=== PATIENT | male | born 1985 | race Caucasian/White ===

== ENCOUNTER 2019-04-16 09:09 | Emergency (ER) | payer BC, SELFPAY ==
[2019-04-16 09:10] VITALS: BP 150/81; PULSE 67; RESP 16; TEMP 36.3; O2SAT 97; BMI 25.7
--- NOTE | 2019-04-16 09:21 | ED.DCSUM_ITS ---
- ER Visit Summary Date of Service: 04/16/19 Chief Complaint: Rash, cough History of Present Illness: The patient is a 33 M presents to the emergency department for rash and cough. Patient states he developed a raised rash in the antecubital areas of both arms and towards his right shoulder. He does work outside. He is unsure if he gone to contact with anything different. He states he is also had cough and some mild shortness of breath. The patient does have a history of asthma. He states normally, he is only on albuterol inhaler. Is been using it, but feels like it is not lasting. He denies any productive sputum. He denies any fevers or chills. Physical Examination: Vital signs reviewed General: Well-nourished, well-developed Head: Normocephalic, atraumatic Eyes: Pupils equal and reactive, extraocular muscles intact Neck, supple, no lymphadenopathy Heart: Regular rate and rhythm Respiratory: No distress, scant wheeze bilaterally Abdomen: Soft, nontender, nondistended, no peritoneal signs Back: Nontender Extremities: Nontender, no edema, no cords Skin: Normal color linear eruption in both antecubital consistent with contact dermatitis. No cellulitis. No streaking. Neuro: Alert and oriented, no focal or lateralizing deficits Test Results: [] Emergency Department Course and Treatment: Patient has evidence of a contact dermatitis he does have a mild asthma exacerbation. He was given a DuoNeb treatment and started on prednisone. I do feel the prednisone would be the best course of care for him given his respiratory symptoms and dermatitis. He is comfortable with this plan of care. He is not hypoxic. He has no tachypnea. Patient will be discharged home. Treatment Plan: [] Disposition: Discharge Impression: 1. Mild asthma exacerbation 2. Contact dermatitis This note was generated with [employer] dictation software. It may contain incorrect words, spelling, and punctuation that were not noted in review of the chart prior to signing ED Disposition - Plan for ED Patient: Instructions: ED Inhaler Use, ED Dermatitis Poison Rosette Prescriptions: Albuterol Inhaler [Ventolin Hfa] 2 puff INHALATION Q4H PRN PRN #1 inhaler PRN Reason: Wheezing Prednisone 10 mg PO UD #33 tab Referrals: NOT,DEFINED [NON-STAFF] -
[2019-04-16] MEDS: Ipratropium/Albuterol Sulfate 3 ML AMPUL.NEB INHALATION (09:24)
[2019-04-16 09:25] VITALS: PULSE 62; RESP 16
[2019-04-16] MEDS: predniSONE 20 MG Tablet 60 MG PO (09:33)
== END 2019-04-16 09:38 | disposition home or self-care (01) ==
PROVIDERS: Emergency Provider Emergency Medicine
DX: L25.9 Unspecified contact dermatitis, unspecified cause (principal); J45.901 Unspecified asthma with (acute) exacerbation
CPT/HCPCS: 94640; 99283